=== PATIENT | female | born 1985 | race Two or more races ===

== ENCOUNTER 2024-11-22 09:42 | Emergency (ER) | payer OTHER, SELFPAY ==
[2024-11-22 09:58] VITALS: BP 141/87; PULSE 70; RESP 17; TEMP 36.5; O2SAT 98; BMI 34.4
--- NOTE | 2024-11-22 10:07 | PD.EDEYE ---
ED Eye Problem RME/HPI General Chief complaint: Eye Problems Stated complaint: POSS. PINK EYE MARI, EXPOSED YESTERDAY Time Seen by Provider: 11/22/24 09:49 Arrival date/time: 11/22/24 09:42 39-year-old female presents to the ER today for concerns of pinkeye patient reports that she was exposed to pinkeye and when she woke up this morning her left eye was closed and matted. Patient reports to use warm compresses and no longer has any matting reports no disturbances in vision Limitations: no limitations Related Data Previous Rx's ?Medication ?Instructions ?Recorded tobramycin 0.3 % eye drops 2 drp ophthalmic (eye) Q4H 5 days 11/22/24 #5 mL Allergies Allergy/AdvReac Type Severity Reaction Status Date / Time No Known Allergies Allergy Verified 11/22/24 09:45 Review of Systems Review of Systems Systems Reviewed: All systems reviewed, normal except as documented Constitutional Constitutional: Reports system reviewed and no additional complaints, except as documented, Denies fever(s) and Denies headache(s) Eyes Eyes: Reports system reviewed and no additional complaints, except as documented, Denies blurry vision, Reports eye discharge, Reports dry eyes, Reports irritation and Reports itchy eyes ENT Ears, Nose, Mouth, and Throat: Reports system reviewed and no additional complaints, except as documented, Denies headache(s), Denies nasal congestion and Denies nasal discharge Cardiovascular Cardiovascular: Reports system reviewed and no additional complaints, except as documented, Denies chest pain and Denies dyspnea Respiratory Respiratory: Reports system reviewed and no additional complaints, except as documented, Denies chest congestion, Denies cough and Denies dyspnea Gastrointestinal Gastrointestinal: Reports system reviewed and no additional complaints, except as documented and Denies abdominal pain Integumentary/Breasts Skin/Breast: Reports system reviewed and no additional complaints, except as documented and Denies rash Neurologic Neurologic: Reports system reviewed and no additional complaints, except as documented, Reports as per HPI and Denies headache(s) Allergic/Immunologic Allergic/Immunologic: Reports itchy eyes Past Medical History Social History SMOKING STATUS: Never smoker ED Exam General Limitations: Present no limitations General appearance: Present alert and in no apparent distress Head Head exam: Present atraumatic Eye Eye exam: Present PERRL, EOMI and conjunctival injection; Absent periorbital swelling or periorbital tenderness ENT ENT exam: Present normal exam, normal oropharynx and mucous membranes moist Neck Neck exam: Present normal inspection, full ROM and trachea midline Chest Chest inspection: Present normal inspection and symmetric chest wall rise Respiratory Respiratory exam: Present normal lung sounds bilaterally Cardiovascular Cardiovascular exam: Present regular rate, normal rhythm and normal heart sounds Abdominal Exam Abdominal exam: Present soft and normal bowel sounds Extremities Exam Extremities exam: Present normal inspection and full ROM Back Exam Back exam: Present normal inspection and full ROM Neurological Exam Neurological exam: Present alert, oriented X3 and CN II-XII intact Psychiatric Psychiatric exam: Present normal affect and normal mood Skin Skin exam: Present warm, dry, intact and normal color Course Quality Measures none Vital Signs Vital signs: Vital Signs Temperature 97.7 F 11/22/24 09:58 Pulse Rate 70 11/22/24 09:58 Respiratory Rate 17 11/22/24 09:58 Blood Pressure 141/87 H 11/22/24 09:58 Pulse Oximetry (%) 98 11/22/24 09:58 Oxygen Delivery Method Room Air 11/22/24 09:58 O2 saturation 98% room air within normal limits Eye MDM Narrative MDM Narrative:: 39-year-old female presents to the ER today for concerns of pinkeye patient reports that she was exposed to pinkeye and when she woke up this morning her left eye was closed and matted. Patient reports to use warm compresses and no longer has any matting reports no disturbances in vision On exam patient well-appearing patient does not appear ill or toxic patient does not appear in any acute distress Patient discharged home in no distress to follow-up with primary care doctor in the next 24 to 48 hours and for any worsening symptoms to return to the ER immediately Patient data External records reviewed:: [facility] previous records Clinical information provided by:: patient Social determinants that could affect healthcare access:: none Patient has the following chronic illnesses:: None How is presenting disease/condition affected by chronic disease/condition?: no chronic disease Evaluation data The following diagnostics were reviewed and interpreted by me:: other (specify) (N/A) Lab and/or radiology exams considered but not ordered:: Consider not ordered Interpretation Summary: None Medications / Prescriptions Medications or Prescriptions considered but not ordered:: Given Medication administrations:: Given Consultations Consultation(s) initiated? (list below): No Diagnosis Eye Problem Differential Diagnosis: corneal abrasion, conjunctivitis and corneal ulcer Most likely diagnosis given after review of the tests above:: Conjunctivitis Admission Indicated Admission indicated?: not indicated Admission Request Was there a request for admission?: No Disposition Plan Disposition Plan: Discharge Discharge Attestation Discharge Attestation: The patient and all family members were given an opportunity to ask questions and understood the discharge instructions. Discharge instructions specifically effects, indications for sooner follow up or return to the emergency department, and the expected course of current diagnosis. Patient condition: Stable Discharge Plan Plan Patient Disposition: HOME (Self Care) Disposition Comment: Stable Prescriptions/Referrals Prescriptions/Med Rec: New tobramycin 0.3 % drops 2 drp ophthalmic (eye) Q4H 5 Days Qty: 5 0RF Problem List Clinical Impression: Bacterial conjunctivitis Patient/Caregiver Discharge Instructions Education Materials: ED Conjunctivitis, Nonspecific Additional Instructions: Please follow up with your primary care doctor in the next 24-48hrs for any worsening symptoms return here immediately Print Language: Japanese Stand Alone Forms: [employer] Award Info., Work/School Release, Patient Portal Info Letter ANTONY/BRITNI Supervising Physician ANTONY/BRITNI Supervising Physician: Dr green
== END 2024-11-22 10:19 | disposition home or self-care (01) ==
LOC: SERX 10:24
PROVIDERS: Emergency Provider Emergency Medicine; PCP Family Medicine
DX: H10.89 Other conjunctivitis (principal)
CPT/HCPCS: 99281

== ENCOUNTER 2025-08-20 12:52 | Emergency (ER) | payer OTHER, SELFPAY ==
[2025-08-20 12:52] VITALS: BMI 36.0
[2025-08-20 13:36] VITALS: BP 124/89; PULSE 62; RESP 18; TEMP 36.6; O2SAT 96
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
[2025-08-20] MEDS: KETOROLAC INJ 30 MG/ML VIAL IM (14:18)
[2025-08-20] MEDS: DIAZEPAM 5 MG TABLET PO (14:49)
[2025-08-20] MEDS: LIDOCAINE 5% 1 PATCH TOP (14:50)
== END 2025-08-20 16:52 | disposition home or self-care (01) ==
PROVIDERS: Emergency Provider Emergency Medicine; PCP Family Medicine
DX: S39.012A Strain of muscle, fascia and tendon of lower back, initial encounter (principal); V89.9XXA Person injured in unspecified vehicle accident, initial encounter
CPT/HCPCS: 96372; 99282; J1885; J3490; A9270